=== PATIENT | male | born 1965 | race Caucasian/White ===

== ENCOUNTER 2022-06-01 20:14 | Emergency (ER) | payer MEDICAID ==
[~2022-06-01] VITALS: Ht 177.8 cm; Wt 80.7 kg
[2022-06-01 20:28] VITALS: BP_SYST 180
--- NOTE | 2022-06-01 20:35 | NUR ---
Patient triaged and placed in waiting room. VS checked and patient appears in no acute distress at this time. Accompanied by family, awaiting available bed, and MD notified of need for MSE.
--- NOTE | 2022-06-01 21:13 | NUR ---
PATIENT TO ER BED 8, SIDE RAILS UP.
[2022-06-01 21:19] LABS: BASOPHILS # (AUTO) 0.1 K/uL (0.0-0.2); BASOPHILS % (AUTO) 0.9 % (0.0-2.0); EOSINOPHILS # (AUTO) 0.1 K/uL (0.0-0.4); EOSINOPHILS % (AUTO) 1.1 % (0.0-4.0); HEMATOCRIT 43.7 % (36-54); HEMOGLOBIN 14.6 g/dL (14.0-18.0); LYMPHOCYTES # (AUTO) 1.7 K/uL (1.0-5.5); LYMPHOCYTES % (AUTO) 19.4 % (20.5-51.5); MEAN CORPUSCULAR HEMOGLOBIN 30 pg (27-31); MEAN CORPUSCULAR HGB CONC 34 % (32-36); MEAN CORPUSCULAR VOLUME 90 fL (79.0-98.0); MONOCYTES # (AUTO) 0.7 K/uL (0.0-1.0); MONOCYTES % (AUTO) 8.4 % (1.7-9.3); NEUTROPHILS # (AUTO) 6.3 K/uL (1.8-7.7); NEUTROPHILS % (AUTO) 70.2 % (40.0-70.0); PLATELET COUNT (AUTO) 239 K/uL (130-430); RED BLOOD CELL COUNT(AUTO) 4.84 MIL/uL (4.2-6.2); RED CELL DISTRIBUTION WIDTH 13.1 % (9.0-15.0); WHITE BLOOD COUNT (AUTO) 8.9 K/uL (4.8-10.8)
[2022-06-01 21:30] LABS: CALCIUM 9.4 mg/dL (8.4-11.0); CREATININE 0.93 mg/dL (0.55-1.30)
[2022-06-01 21:35] LABS: TOTAL BILIRUBIN 0.4 mg/dL (0.0-1.0)
[2022-06-01] MEDS ORDERED: HYDROcodone/ACETAMIN 5-325 MG TAB (NORCO/ VICODIN) PO ONE (22:00)
[2022-06-01 22:01] LABS: BILIRUBIN,URINE NEGATIVE (NEGATIVE); BLOOD, URINE 3+ (NEGATIVE); CLARITY/URINE CLEAR (CLEAR); COLOR,URINE YELLOW (YELLOW); GLUCOSE,URINE NEGATIVE (NEGATIVE); KETONES,URINE NEGATIVE (NEGATIVE); LEUKOCYTE ESTERASE ,URINE NEGATIVE (NEGATIVE); NITRITE, URINE NEGATIVE (NEGATIVE); PH,URINE 5.5 (5.0-8.0); PROTEIN URINE NEGATIVE (NEGATIVE); UROBILINOGEN,URINE 0.2 (0.2-1.0)
[2022-06-01 22:06] LABS: BACTERIA,URINE FEW /HPF (None Seen); MUCUS,URINE None Seen /LPF (None Seen); RBC,URINE 20-50 /HPF (0-3); WBC,URINE 0-3 /HPF (0-3)
[2022-06-01] MEDS ORDERED: NACL 0.9% 1,000 ML IV ONE (22:45)
[2022-06-01] MEDS ORDERED: KETOROLAC TROMETHAMINE 30 MG VIAL IVP ONE (22:45)
--- NOTE | 2022-06-01 23:00 | NUR ---
PATIENT RESTING IN BED, VSS. WAITING FOR LAB RESULTS
--- NOTE | 2022-06-01 23:29 | NUR ---
# 20 gauge angiocath placed to R AC. Use of asceptic technique. Opsite placed over site. Blood return noted. Flushed with 10 cc of normal saline. No evidence of infiltration noted. Patient tolerated well.
[2022-06-02] MEDS ORDERED: IBUP-1969 PO (01:08)
[2022-06-02] MEDS ORDERED: HYDR-3921 PO (01:08)
[2022-06-02 01:30] VITALS: BP_SYST 169
--- NOTE | 2022-06-02 01:30 | NUR ---
Patient given written and verbal discharge instructions and verbalizes understanding. ER MD MCCURDY discussed with patient the results and treatment provided. Patient in stable condition. ID arm band removed. IV catheter removed intact and dressing applied, no active bleeding. Rx of NORCO,AND IBUPROFEN given. Patient educated on pain management and to follow up with PMD. Pain Scale 0/10. Opportunity for questions provided and answered. Medication side effect fact sheet provided.
== END 2022-06-02 01:30 | disposition home or self-care (01) ==
LOC: SED 20:14
DX: N20.1 Calculus of ureter (principal); R10.9 Unspecified abdominal pain; N50.811 Right testicular pain; R11.0 Nausea; I10 Essential (primary) hypertension; E78.00 Pure hypercholesterolemia, unspecified; Z88.0 Allergy status to penicillin; Z79.899 Other long term (current) drug therapy
CPT/HCPCS: 99284; 74176; 96374; 96361; 80053; 81000; 83690; 85025; 36415; 76376; 83605; J1885; J7030

== ENCOUNTER 2022-12-25 15:25 | Emergency (ER) | payer MEDICAID ==
[~2022-12-25] VITALS: Ht 177.8 cm; Wt 104.3 kg
[~2022-12-25 15:25] MED LIST: HYDR-3921 PO; IBUP-1969 PO
[2022-12-25 15:29] VITALS: BP_SYST 135; PULSE 75; RESP 16; TEMP 97.7; O2SAT 98
--- NOTE | 2022-12-25 15:32 | NUR ---
Placed in room 4 . Placed on monitor worker, blood pressure machine and pulse oximeter. To gown for exam. Side rails up. Report given to
--- NOTE | 2022-12-25 15:35 | NUR ---
RECEIVED PT FROM CYNDIE HORNE. PT BIB WITH C/O C/P SINCE LAST NIGHT 0200. SUBSTERNAL PAIN THAT RADIATES TO LEFT ARM AT TIME. PT STATED HE TOOK ASA 81MG LAST NIGHT. PT IS AAOX4. ON R/A. DENIES N/V/D/C. PT HAS C/O GERD. DISTAL PULSES NORMAL. SKIN CDI, WARM, DISTAL PULSES NORMAL, NO EDEMA NOTED. VSS. SIDERAILS UP X2. PMH: GERD, HTN.
--- NOTE | 2022-12-25 15:37 | NUR ---
EKG OBTAINED AND GIVEN TO DR. MIRELES.
--- NOTE | 2022-12-25 15:47 | NUR ---
DR. MIRELES AT BEDSIDE TO ASSESS PT.
[2022-12-25] MEDS ORDERED: NACL 0.9% 1,000 ML IV ONE (16:00)
[2022-12-25] MEDS ORDERED: iohexoL 350 mgI/mL, 100 ML INFUS..BTL IV ONE (16:19)
--- NOTE | 2022-12-25 16:31 | NUR ---
PT TAKEN TO CT SCAN WITH CONTRAST AT THIS TIME. CONSENT FORM OBTAINED.
[2022-12-25 16:33] LABS: BASOPHILS % (AUTO) 0.3 % (0.0-2.0); EOSINOPHILS # (AUTO) 0.1 K/uL (0.0-0.4); EOSINOPHILS % (AUTO) 0.9 % (0.0-4.0); HEMATOCRIT 44.6 % (36-54); HEMOGLOBIN 14.9 g/dL (14.0-18.0); LYMPHOCYTES # (AUTO) 2.3 K/uL (1.0-5.5); LYMPHOCYTES % (AUTO) 23.3 % (20.5-51.5); MEAN CORPUSCULAR HEMOGLOBIN 30 pg (27-31); MEAN CORPUSCULAR HGB CONC 33 % (32-36); MEAN CORPUSCULAR VOLUME 91 fL (79.0-98.0); MONOCYTES # (AUTO) 1.1 K/uL (0.0-1.0); NEUTROPHILS # (AUTO) 6.2 K/uL (1.8-7.7); NEUTROPHILS % (AUTO) 64.5 % (40.0-70.0); PLATELET COUNT (AUTO) 283 K/uL (130-430); RED BLOOD CELL COUNT(AUTO) 4.93 MIL/uL (4.2-6.2); WHITE BLOOD COUNT (AUTO) 9.7 K/uL (4.8-10.8)
[2022-12-25 16:36] LABS: ALANINE AMINOTRANSFERASE 27 U/L (12-78); ASPARTATE AMINOTRANSFERASE 20 U/L (10-37); CALCIUM 9.6 mg/dL (8.4-11.0); CREATININE 0.81 mg/dL (0.55-1.30); GFR AFRICAN AMERICAN 125 mL/min (>90); GLUCOSE 110 mg/dL (74-106); LIPASE 158 U/L (73-393); TOTAL BILIRUBIN 0.8 mg/dL (0.0-1.0); UREA NITROGEN, BLOOD 12 mg/dL (8-21)
--- NOTE | 2022-12-25 16:45 | NUR ---
PT BACK FROM CT SCAN AND PLACED ON MONITOR.
[2022-12-25 16:53] LABS: ANION GAP 10 (5-15); CHLORIDE 100 mmol/L (98-107)
[2022-12-25] MEDS ORDERED: ASPI-858 PO (18:14)
[2022-12-25] MEDS ORDERED: ASPIRIN 325 MG TABLET PO ONE (18:15)
--- NOTE | 2022-12-25 18:26 | NUR ---
ASA 325MG PO.
--- NOTE | 2022-12-25 18:33 | NUR ---
Juan Francisco bonilla in [facility] - 12/25/22 at [email or web address] MOE NOTED AT BEDSIDE FOR EXAM.
--- NOTE | 2022-12-25 19:35 | NUR ---
PT ENDORSED TO CYNDIE LOVE. ALL QUESTIONS AND CONCERNS ADDRESSED.
[2022-12-25 19:45] VITALS: BP_SYST 145; PULSE 78; RESP 19; TEMP 98; O2SAT 96
--- NOTE | 2022-12-25 19:50 | NUR ---
Patient given written and verbal discharge instructions and verbalizes understanding. ER MD discussed with patient the results and treatment provided. Patient in stable condition. ID arm band removed. IV catheter removed intact and dressing applied, no active bleeding. Rx of aspirin given. Patient educated on pain management and to follow up with PMD. Pain Scale 0/10. Opportunity for questions provided and answered. Medication side effect fact sheet provided.
== END 2022-12-25 19:45 | disposition home or self-care (01) ==
LOC: SED 15:25
DX: R07.9 Chest pain, unspecified (principal); I10 Essential (primary) hypertension; E78.00 Pure hypercholesterolemia, unspecified; F17.200 Nicotine dependence, unspecified, uncomplicated; Z88.0 Allergy status to penicillin; Z79.899 Other long term (current) drug therapy
CPT/HCPCS: 99285; 71275; 96360; 80053; 83880; 83690; 85025; 85379; 84484; 36415; 93005; 74177; 76376; Q9967; J7030